=== PATIENT | male | born 1960 | race Caucasian/White ===

== ENCOUNTER 2017-11-18 12:07 | Emergency (ER) | payer OTHER ==
--- NOTE | 2017-11-18 14:10 | Emergency Department Report ---
Blank Doc - Documentation Documentation: Patient is a 57-year-old [place] gentleman who is presenting with suprapubic discomfort and problems urinating. Patient states he's been feeling possible fevers with cold chills sometimes he feels very hot. Patient states there is some discomfort with urinating and he has suprapubic and lower back discomfort. There is bilateral not focal on either one side. Patient took one of his [id number]'s amoxicillin as says he feels slightly better. The patient will have a urinalysis performed and will be reassessed by ROBIN
[2017-11-18 14:26] LABS: Bacteria,Urine 1+ /HPF (Negative); Bilirubin,Urine NEG (Negative); Blood,Urine MOD (Negative); Color,Urine Yellow (Yellow); Mucus,Urine FEW /HPF; Protein,Urine <15 mg/dL mg/dL (Negative); Urobilinogen,Urine < 2.0 mg/dL (<2.0)
--- NOTE | 2017-11-18 14:45 | Emergency Department Report ---
ED Male HPI - General Chief complaint: Abdominal Pain Stated complaint: BACK AND GROIN PAIN, SHAKES Time Seen by Provider: 11/18/17 13:49 Source: patient Mode of arrival: Ambulatory Limitations: No Limitations - History of Present Illness Initial comments: 57-year-old male past medical history? Kidney stones presents with complaint of approximately 3-4 days of intermittent suprapubic discomfort radiating up to the left aspect of the groin. Patient denies nausea or vomiting fever however does state he has some chills earlier today. Patient denies chest pain palpitations shortness of breath. Patient is awake alert and oriented 3. Patient speaks [place] with some limitation, I can communicate with him well. Patient's son at bedside was also assisting with communication. MD Complaint: dysuria Onset/Timin -: days(s) Severity: moderate Severity scale (0 -10): 6 Quality: burning Consistency: intermittent Improves with: none Worsens with: none - Related Data Previous Rx's Medication Instructions Recorded Last Taken Type Ciprofloxacin HCl [Ciprofloxacin 500 mg PO Q12HR #20 tab 11/18/17 Unknown Rx TAB] Ibuprofen [Motrin] 600 mg PO Q8H PRN #20 tablet 11/18/17 Unknown Rx Phenazopyridine [Pyridium] 100 mg PO TID #6 tab 11/18/17 Unknown Rx Allergies Allergy/AdvReac Type Severity Reaction Status Date / Time No Known Allergies Allergy Verified 11/18/17 12:16 ED Review of Systems ROS: Stated complaint: BACK AND GROIN PAIN, SHAKES Other details as noted in HPI Constitutional: denies: chills, fever Eyes: denies: eye pain, eye discharge, vision change ENT: denies: ear pain, throat pain Respiratory: denies: cough, shortness of breath, wheezing Cardiovascular: denies: chest pain, palpitations Endocrine: no symptoms reported Gastrointestinal: denies: abdominal pain, nausea, diarrhea Genitourinary: denies: urgency, dysuria Musculoskeletal: denies: back pain, joint swelling, arthralgia Skin: denies: rash, lesions Neurological: denies: headache, weakness, paresthesias Psychiatric: denies: anxiety, depression Hematological/Lymphatic: denies: easy bleeding, easy bruising ED Past Medical Hx - Past Medical History Additional medical history: HEPATITIS B - Social History Smoking Status: Never Smoker Substance Use Type: None - Medications Home Medications: Home Medications Medication Instructions Recorded Confirmed Last Taken Type Ciprofloxacin HCl [Ciprofloxacin 500 mg PO Q12HR #20 tab 11/18/17 Unknown Rx TAB] Ibuprofen [Motrin] 600 mg PO Q8H PRN #20 tablet 11/18/17 Unknown Rx Phenazopyridine [Pyridium] 100 mg PO TID #6 tab 11/18/17 Unknown Rx ED Physical Exam - General Limitations: No Limitations General appearance: alert, in no apparent distress - Head Head exam: Present: atraumatic, normocephalic - Eye Eye exam: Present: normal appearance, PERRL, EOMI - ENT ENT exam: Present: mucous membranes moist - Neck Neck exam: Present: normal inspection - Respiratory Respiratory exam: Present: normal lung sounds bilaterally. Absent: respiratory distress - Cardiovascular Cardiovascular Exam: Present: regular rate, normal rhythm. Absent: systolic murmur, diastolic murmur, rubs, gallop - GI/Abdominal GI/Abdominal exam: Present: tenderness (some suprapubic tenderness on palpating) , normal bowel sounds - Rectal Rectal exam: Present: deferred - Extremities Exam Extremities exam: Present: normal inspection - Back Exam Back exam: Present: normal inspection, full ROM (no flank tenderness on percussion) - Neurological Exam Neurological exam: Present: alert, oriented X3, CN II-XII intact, normal gait - Psychiatric Psychiatric exam: Present: normal affect, normal mood - Skin Skin exam: Present: warm, dry, intact, normal color. Absent: rash ED Course Vital Signs 11/18/17 11/18/17 11/18/17 12:16 15:23 15:24 Temperature 98.3 F Pulse Rate 98 H 78 Respiratory 16 18 18 Rate Blood Pressure 172/96 Blood Pressure 118/78 [Left] O2 Sat by Pulse 100 98 Oximetry ED Medical Decision Making - Medical Decision Making A/P: Urinary tract infection 1- I discussed case with Dr. Bruno before discharge 2- vital signs stable before discharge 3- I advised patient to return to the ED for any fevers chills nausea vomiting inability to tolerate by mouth worsened flank pain 4- 10 day course of ciprofloxacin, urinalysis shows large amount of WBCs, urine culture sent. I discussed with the patient obtaining imaging of his kidneys to determine if he has any elements of kidney stones. Patient states he had an ultrasound approximately a year ago which showed some small intrarenal stones. At this time as patient denies any significant difficulty urinating and is afebrile and is not vomiting profusely it is reasonable to treat him empirically for urinary tract infection and given strict precautions to return if his symptoms worsen. I discussed choice of antibiotic and duration with Dr. Bruno before I discharged this patient. Critical care attestation.: If time is entered above; I have spent that time in minutes in the direct care of this critically ill patient, excluding procedure time. ED Disposition Clinical Impression: Dysuria Urinary tract infection Qualifiers: Urinary tract infection type: acute cystitis Hematuria presence: without hematuria Qualified Code(s): N30.00 - Acute cystitis without hematuria Disposition: TO HOME OR SELFCARE Is pt being admited?: No Does the pt Need Aspirin: No Condition: Stable Instructions: Ciprofloxacin (By mouth), Phenazopyridine (By mouth), Urinary Tract Infection in Men (ED), Dysuria (ED) Prescriptions: Ciprofloxacin HCl [Ciprofloxacin TAB] 500 mg PO Q12HR #20 tab Ibuprofen [Motrin] 600 mg PO Q8H PRN #20 tablet PRN Reason: Fever Phenazopyridine [Pyridium] 100 mg PO TID #6 tab Referrals: JACQUI RICHARD MD [Primary Care Provider] - 3-5 Days [facility] [Provider Group] - 3-5 Days Forms: Accompanied Note, Work/School Release Form(ED) Time of Disposition: 15:27
[2017-11-18] MEDS ORDERED: XYLOCAINE 1% MPF 5 mL INFILTRATI ONE (15:09)
[2017-11-18] MEDS ORDERED: ROCEPHIN IM ONE (15:09)
[2017-11-18] MEDS ORDERED: TORADOL IM ONE (15:10)
[2017-11-18 15:24] VITALS: BP 118/78
== END 2017-11-18 15:48 | disposition home or self-care (01) ==
LOC: ED 12:07
DX: N30.00 Acute cystitis without hematuria (principal)
CPT/HCPCS: 81001; 96372; 99283; J0696; J1885